=== PATIENT | female | born 1980 | race Two or more races ===

== ENCOUNTER 2024-02-21 08:43 | Observation (INO) | payer BC, OTHER ==
[~2024-02-21] VITALS: Ht 157.5 cm; Wt 61.2 kg
[2024-02-21] MEDS ORDERED: PREN-96 PO (10:46)
== END 2024-02-21 11:00 | disposition home or self-care (01) ==
LOC: LDRP 08:43 → UNDOADMOB 08:43 → LDRP 08:57
PROVIDERS: ADMIT Obstetrics & Gynecology; ATTEND Obstetrics & Gynecology
DX: O34.29 Maternal care due to uterine scar from other previous surgery (principal); O24.419 Gestational diabetes mellitus in pregnancy, unspecified control; Z3A.32 32 weeks gestation of pregnancy
CPT/HCPCS: 59025; 76818; 81002; 82948; 94760; G0378

== ENCOUNTER 2024-02-28 11:14 | Observation (INO) | payer BC ==
[~2024-02-28 11:14] MED LIST: PREN-96 PO
== END 2024-02-28 13:00 | disposition home or self-care (01) ==
LOC: LDRP 11:14 → UNDOADMOB 11:14 → LDRP 11:24
PROVIDERS: ADMIT Obstetrics & Gynecology; ATTEND Obstetrics & Gynecology
DX: O24.419 Gestational diabetes mellitus in pregnancy, unspecified control (principal); Z3A.33 33 weeks gestation of pregnancy
CPT/HCPCS: 59025; 76818; 81002; G0378

== ENCOUNTER 2024-03-06 10:39 | Observation (INO) | payer BC | END 2024-03-06 12:25 | disposition home or self-care (01) | LOC: LDRP 10:39 → UNDOADMOB 10:39 → LDRP 10:47 | PROVIDERS: ADMIT Obstetrics & Gynecology; ATTEND Obstetrics & Gynecology | DX: O24.419 Gestational diabetes mellitus in pregnancy, unspecified control (principal); Z3A.34 34 weeks gestation of pregnancy | CPT/HCPCS: 59025; 76818; 81002; 82948; 82962; 94760; G0378 ==

== ENCOUNTER 2024-03-13 09:47 | Observation (INO) | payer BC | END 2024-03-13 11:54 | disposition home or self-care (01) | LOC: LDRP 10:10 → UNDOADMOB 10:10 → LDRP 10:44 → UNDODISOB 11:54 | PROVIDERS: ADMIT Obstetrics & Gynecology; ATTEND Obstetrics & Gynecology | DX: O24.419 Gestational diabetes mellitus in pregnancy, unspecified control (principal); O09.523 Supervision of elderly multigravida, third trimester; Z3A.36 36 weeks gestation of pregnancy | CPT/HCPCS: 59025; 76818; 81002; 82948; 94760; G0378 ==